=== PATIENT | female | born 1965 | race Caucasian/White ===

== ENCOUNTER 2018-02-28 14:43 | Emergency (ER) | payer OTHER ==
[2018-02-28 15:48] VITALS: BP 130/88
== END 2018-02-28 15:48 | disposition home or self-care (01) ==
LOC: ED 14:43
DX: S92.532A Displaced fracture of distal phalanx of left lesser toe(s), initial encounter for closed fracture (principal); Z90.710 Acquired absence of both cervix and uterus; W22.8XXA Striking against or struck by other objects, initial encounter; Y93.89 Activity, other specified; Y92.89 Other specified places as the place of occurrence of the external cause; Y99.8 Other external cause status
CPT/HCPCS: Q0092

== ENCOUNTER 2018-03-02 14:35 | Emergency (ER) | payer OTHER ==
[~2018-03-02] VITALS: Ht 170.2 cm; Wt 110.7 kg
[2018-03-02 15:15] VITALS: Ht 170.2 cm; Wt 110.7 kg
[2018-03-02 16:32] VITALS: BP 128/77
== END 2018-03-02 16:33 | disposition home or self-care (01) ==
LOC: ED 14:35
DX: S92.532G Displaced fracture of distal phalanx of left lesser toe(s), subsequent encounter for fracture with delayed healing (principal); Z90.710 Acquired absence of both cervix and uterus; X58.XXXD Exposure to other specified factors, subsequent encounter

== ENCOUNTER 2018-07-12 20:42 | Emergency (ER) | payer OTHER ==
[~2018-07-12] VITALS: Ht 170.2 cm; Wt 109.8 kg
[2018-07-12 23:41] VITALS: BP 131/79
== END 2018-07-12 23:41 | disposition home or self-care (01) ==
LOC: ED 20:42
DX: J06.9 Acute upper respiratory infection, unspecified (principal); H92.03 Otalgia, bilateral; Z90.710 Acquired absence of both cervix and uterus
CPT/HCPCS: J1885

== ENCOUNTER 2019-03-06 15:02 | Emergency (ER) | payer MEDICAID ==
[~2019-03-06] VITALS: Ht 170.2 cm; Wt 106.6 kg
[2019-03-06 15:15] VITALS: Ht 170.2 cm; Wt 106.6 kg
[2019-03-06 16:25] LABS: BASOPHIL % 0.3 % (0-2); PLATELET COUNT 339 x10^3mcL (130-400)
[2019-03-06 16:27] LABS: RED CELL DISTRIBUTION WIDTH 15.3 % (11.5-14.5)
[2019-03-06 16:35] LABS: CALCIUM 8.9 mg/dL (8.5-10.1); CARBON DIOXIDE 29.2 mmol/L (21-32); CHLORIDE SERUM 105 mmol/L (98-107); CREATININE SERUM 0.7 mg/dL (0.6-1.0); GFR1 > 60 mL/min; GLUCOSE SERUM 87 mg/dL (74-106); POTASSIUM SERUM 3.6 mmol/L (3.5-5.1); SODIUM SERUM 142 mmol/L (136-145)
[2019-03-06 16:41] LABS: ALBUMIN 3.9 g/dL (3.4-5.0); ALKALINE PHOSPHATASE 123 U/L (46-116); ALT/SGPT 65 U/L (14-59); AST/SGOT 41 U/L (15-37); BILIRUBIN TOTAL 0.54 mg/dL (0.20-1.00); TOTAL PROTEIN, SERUM 8.7 g/dL (6.4-8.2)
[2019-03-06 17:37] VITALS: BP 144/85
== END 2019-03-06 18:53 | disposition home or self-care (01) ==
LOC: ED 15:02
PROVIDERS: Emergency Medicine
DX: M79.10 Myalgia, unspecified site (principal); Z90.710 Acquired absence of both cervix and uterus; Z98.890 Other specified postprocedural states
CPT/HCPCS: J1885; J7030

== ENCOUNTER 2019-07-30 18:07 | Emergency (ER) | payer SELFPAY ==
[~2019-07-30] VITALS: Ht 167.6 cm; Wt 109.8 kg
[2019-07-30 18:16] VITALS: Ht 167.6 cm; Wt 109.8 kg
[2019-07-30 21:28] VITALS: BP 131/77
== END 2019-07-30 21:28 | disposition home or self-care (01) ==
LOC: ED 18:07
DX: M54.41 Lumbago with sciatica, right side (principal); Z98.890 Other specified postprocedural states; Z90.710 Acquired absence of both cervix and uterus